=== PATIENT | female | born 1945 | race African-American/Black ===

== ENCOUNTER 2018-08-31 20:38 | Inpatient (IN) ==
[2018-08-31] MEDS ORDERED: SODIUM CHLORIDE 0.9% 1,000 ML IV STA ×2 (21:34→22:38)
[2018-08-31 22:34] LABS: Apearance,Urine Slightly Hazy (Clear); Bilirubin,Urine Negative (Negative); Blood, Urine Negative (Negative); Glucose,Urine (UA) Negative (Negative); Hyaline Casts,Urine 33 /LPF (0-3); Ketones,Urine 5 mg/dL (Negative); Mucus,Urine Occasional /LPF (Occasional); Nitrite,Urine Negative (Negative); Protein,Urine Negative; RBC,Urine 7 /HPF (0-4); Squamous Epithelial Cell,Urine Occasional /HPF (0-10); Urine Color Yellow (Yellow); WBC,Urine 1 /HPF (0-6)
[2018-08-31] MEDS ORDERED: KETOROLAC 30 MG/1 ML VIAL ONE (22:41)
[2018-08-31] MEDS ORDERED: KETOROLAC 30 MG/1 ML VIAL IV STA (22:41)
[2018-08-31 23:00] LABS: Basophils % 0.3 % (0.0-0.8); Eosinophils % 0.4 % (0.00-10.9); Hematocrit 30.7 VOL% (35.7-47.0); Hemoglobin 9.7 GM/DL (12.0-16.0); Immature Granulocytes % 0.4 %; Immature Granulocytes Absolute 0.05 #; Lymphocytes # 2.2 10*3/uL (1.4-4.0); Lymphocytes % 19.8 % (21.3-54.2); Mean Corpuscular HGB Conc 31.6 GM/DL (32-36); Mean Corpuscular Hemoglobin 28 PG (27-34); Mean Corpuscular Volume 88.7 FL (87-102); Mean Platelet Volume 9.2 FL (9.6-12.0); Monocytes # 0.8 10*3/uL (0.11-0.8); Monocytes % 7.3 % (1.7-12.7); Neutrophils # 8.1 10*3/uL (1.4-7.4); Neutrophils % 71.8 % (38.7-73.9); Platelet Count 238 T/CUMM (130-400); Red Blood Count 3.46 MC/CUMM (3.8-5.5); Red Cell Distribution Width 17.5 % (9.3-17.3); White Blood Count 11.3 T/CUMM (4-12)
[2018-08-31 23:26] LABS: Alanine Aminotransferase 12 U/L (13-56); Albumin 3.4 G/DL (3.4-5.0); Alkaline Phosphatase 50 U/L (45-117); Aspartate Amino Transferase 12 U/L (0-37); Bilirubin,Total < 0.39 MG/DL (0.2-1.0); Blood Urea Nitrogen 30 MG/DL (7-18); Calcium 9.1 MG/DL (8.5-10.1); Glucose 137 MG/DL (74-106); Osmolality,Calculated 284.5 MOS/KG (273-304); Potassium 4.4 MMOL/L (3.5-5.1); Sodium 139 MMOL/L (136-145); Total Protein 6.5 G/DL (6.4-8.3)
[2018-09-01] MEDS ORDERED: DOPamine 800 MG/250 ML PREMIX IV PRN (00:15)
[2018-09-01] MEDS ORDERED: ONDANSETRON 4 MG/2 ML VIAL IV PRN (01:31)
[2018-09-01] MEDS ORDERED: DOCUSATE SODIUM 100 MG CAPSULE PO PRN (01:31)
[2018-09-01] MEDS ORDERED: ACETAMINOPHEN 325 MG TABLET PO PRN (01:31)
[2018-09-01] MEDS ORDERED: BISACODYL 5 MG TABLET PO PRN (01:37)
[2018-09-01] MEDS ORDERED: HYDROmorphone 2 MG/1 ML VIAL IV PRN ×2 (01:49→01:59)
[2018-09-01] MEDS ORDERED: DEXTROSE 50% 25 GM/50 ML SYRINGE IV PRN (02:37)
[2018-09-01] MEDS ORDERED: GLUCAGON 1 MG VIAL IM PRN (02:37)
[2018-09-01] MEDS: SODIUM CHLORIDE 0.9% 1,000 ML IV SCH ×2 (02:50→16:30)
[2018-09-01] MEDS: INSULIN REGULAR 100 UNIT/ML SUBCUT SCH ×3 (06:38→22:21)
[2018-09-01] MEDS ORDERED: ceFAZolin 1,000 MG in SYRINGE 1 EACH IV ONE (07:13)
[2018-09-01] MEDS ORDERED: diphenhydrAMINE CAP 25 MG CAPSULE PO PRN (08:59)
[2018-09-01] MEDS ORDERED: PROMETHAZINE 25 MG/1 ML VIAL IM PRN (08:59)
[2018-09-01] MEDS ORDERED: MAGNESIUM HYDROXIDE SUSP 30 ML UDCUP PO PRN (08:59)
[2018-09-01] MEDS ORDERED: BISACODYL 10 MG SUPP RECTAL PRN (08:59)
[2018-09-01] MEDS ORDERED: LACTULOSE 20 GM/30 ML UDCUP PO PRN (08:59)
[2018-09-01] MEDS ORDERED: PROPOFOL 200 MG/20 ML VIAL IV ONE (11:16)
[2018-09-01] MEDS ORDERED: SEVOFLURANE 1 UNIT/15 MINUTE INH ONE (11:16)
[2018-09-01] MEDS ORDERED: CALCIUM CHLORIDE 1,000 MG/10 ML VIAL IV ONE (11:16)
[2018-09-01] MEDS ORDERED: ONDANSETRON 4 MG/2 ML VIAL ONE (11:17)
[2018-09-01] MEDS ORDERED: PHENYLEPHRINE 1 MG/10 ML SYRINGE IV ONE (11:17)
[2018-09-01] MEDS ORDERED: ALBUTEROL INHALER 8 GM INH ONE (11:17)
[2018-09-01] MEDS ORDERED: ACETAMINOPHEN 1,000 MG/100 ML VIAL IV ONE (11:17)
[2018-09-01] MEDS: PANTOPRAZOLE 40 MG TABLET PO SCH (12:05)
[2018-09-01] MEDS: ROSUVASTATIN 10 MG TABLET PO SCH (12:05)
[2018-09-01] MEDS: CHOLECALCIFEROL 400 UNIT TABLET PO SCH (12:05)
[2018-09-01] MEDS: ESCITALOPRAM 10 MG TABLET PO SCH (12:05)
[2018-09-01] MEDS: GABAPENTIN 600 MG TABLET PO SCH ×2 (12:05→21:18)
[2018-09-01] MEDS: ceFAZolin 1,000 MG in SYRINGE 1 EACH IV SCH (15:19)
[2018-09-01] MEDS: metFORMIN 850 MG TABLET PO SCH (17:13)
[2018-09-01] MEDS: DIPYRIDAMOLE/ASPIRIN 200-25 MG CAPSULE PO SCH (21:18)
[2018-09-02] MEDS: ceFAZolin 1,000 MG in SYRINGE 1 EACH IV SCH ×2 (00:03→13:18)
[2018-09-02] MEDS: INSULIN REGULAR 100 UNIT/ML SUBCUT SCH ×4 (00:32→18:07)
[2018-09-02 05:52] LABS: Calcium 8.7 MG/DL (8.5-10.1); Potassium 4.3 MMOL/L (3.5-5.1)
[2018-09-02 07:16] LABS: Basophils % 0.4 % (0.0-0.8); Eosinophils # 0.1 10*3/uL (0.0-0.87); Eosinophils % 1.3 % (0.00-10.9); Hematocrit 25.7 VOL% (35.7-47.0); Immature Granulocytes % 0.2 %; Immature Granulocytes Absolute 0.02 #; Lymphocytes # 3.1 10*3/uL (1.4-4.0); Lymphocytes % 36.6 % (21.3-54.2); Mean Corpuscular HGB Conc 31.1 GM/DL (32-36); Mean Corpuscular Hemoglobin 28 PG (27-34); Mean Corpuscular Volume 90.2 FL (87-102); Mean Platelet Volume 10.1 FL (9.6-12.0); Monocytes # 0.6 10*3/uL (0.11-0.8); Monocytes % 7.2 % (1.7-12.7); Neutrophils # 4.5 10*3/uL (1.4-7.4); Neutrophils % 54.3 % (38.7-73.9); Platelet Count 197 T/CUMM (130-400); Red Blood Count 2.85 MC/CUMM (3.8-5.5); Red Cell Distribution Width 17.7 % (9.3-17.3); White Blood Count 8.4 T/CUMM (4-12)
[2018-09-02] MEDS: ESCITALOPRAM 10 MG TABLET PO SCH (10:19)
[2018-09-02] MEDS: metFORMIN 850 MG TABLET PO SCH ×2 (10:19→16:47)
[2018-09-02] MEDS: GABAPENTIN 600 MG TABLET PO SCH ×2 (10:19→20:50)
[2018-09-02] MEDS: DIPYRIDAMOLE/ASPIRIN 200-25 MG CAPSULE PO SCH ×2 (10:19→20:50)
[2018-09-02] MEDS: hydroCHLOROthiazide 25 MG TABLET PO SCH (10:19)
[2018-09-02] MEDS: LISINOPRIL 20 MG TABLET PO SCH (10:19)
[2018-09-02] MEDS: ROSUVASTATIN 10 MG TABLET PO SCH (10:21)
[2018-09-02] MEDS: PANTOPRAZOLE 40 MG TABLET PO SCH (10:21)
[2018-09-02] MEDS: CHOLECALCIFEROL 400 UNIT TABLET PO SCH (10:21)
[2018-09-02] MEDS ORDERED: ceFAZolin 1,000 MG in SYRINGE 1 EACH IV SCH (10:30)
[2018-09-02] MEDS: SODIUM CHLORIDE 0.9% 1,000 ML IV SCH (13:17)
[2018-09-03] MEDS: INSULIN REGULAR 100 UNIT/ML SUBCUT SCH ×4 (00:54→20:02)
[2018-09-03 05:24] LABS: Basophils % 0.2 % (0.0-0.8); Eosinophils # 0.1 10*3/uL (0.0-0.87); Eosinophils % 1.2 % (0.00-10.9); Hematocrit 25.6 VOL% (35.7-47.0); Hemoglobin 8.1 GM/DL (12.0-16.0); Immature Granulocytes % 0.8 %; Immature Granulocytes Absolute 0.07 #; Lymphocytes # 2.7 10*3/uL (1.4-4.0); Lymphocytes % 31.5 % (21.3-54.2); Mean Corpuscular HGB Conc 31.6 GM/DL (32-36); Mean Corpuscular Hemoglobin 28 PG (27-34); Mean Corpuscular Volume 88.6 FL (87-102); Mean Platelet Volume 9.4 FL (9.6-12.0); Monocytes # 0.7 10*3/uL (0.11-0.8); Monocytes % 7.9 % (1.7-12.7); Neutrophils % 58.4 % (38.7-73.9); Platelet Count 185 T/CUMM (130-400); Red Blood Count 2.89 MC/CUMM (3.8-5.5); Red Cell Distribution Width 17.5 % (9.3-17.3); White Blood Count 8.5 T/CUMM (4-12)
[2018-09-03 05:46] LABS: Calcium 8.6 MG/DL (8.5-10.1); Osmolality,Calculated 279.4 MOS/KG (273-304)
[2018-09-03] MEDS: ROSUVASTATIN 10 MG TABLET PO SCH (09:38)
[2018-09-03] MEDS: LISINOPRIL 20 MG TABLET PO SCH (09:38)
[2018-09-03] MEDS: ESCITALOPRAM 10 MG TABLET PO SCH (09:38)
[2018-09-03] MEDS: PANTOPRAZOLE 40 MG TABLET PO SCH (09:38)
[2018-09-03] MEDS: DIPYRIDAMOLE/ASPIRIN 200-25 MG CAPSULE PO SCH ×2 (09:38→21:47)
[2018-09-03] MEDS: GABAPENTIN 600 MG TABLET PO SCH ×2 (09:38→21:47)
[2018-09-03] MEDS: CHOLECALCIFEROL 400 UNIT TABLET PO SCH (09:38)
[2018-09-03] MEDS: metFORMIN 850 MG TABLET PO SCH ×2 (09:39→18:36)
[2018-09-03] MEDS: hydroCHLOROthiazide 25 MG TABLET PO SCH (12:54)
[2018-09-04] MEDS: INSULIN REGULAR 100 UNIT/ML SUBCUT SCH ×3 (00:48→12:43)
[2018-09-04] MEDS: DIPYRIDAMOLE/ASPIRIN 200-25 MG CAPSULE PO SCH (11:22)
[2018-09-04] MEDS: metFORMIN 850 MG TABLET PO SCH (11:22)
[2018-09-04] MEDS: CHOLECALCIFEROL 400 UNIT TABLET PO SCH (11:23)
[2018-09-04] MEDS: ROSUVASTATIN 10 MG TABLET PO SCH (11:24)
[2018-09-04] MEDS: GABAPENTIN 600 MG TABLET PO SCH (11:24)
[2018-09-04] MEDS: ESCITALOPRAM 10 MG TABLET PO SCH (11:24)
[2018-09-04] MEDS: hydroCHLOROthiazide 25 MG TABLET PO SCH (11:24)
[2018-09-04] MEDS: LISINOPRIL 20 MG TABLET PO SCH (11:25)
[2018-09-04] MEDS: PANTOPRAZOLE 40 MG TABLET PO SCH (11:25)
[2018-09-04 11:53] VITALS: BP 121/67
== END 2018-09-04 14:40 | disposition swing bed (61) | DRG 493 ==
LOC: EDUNIT# → EDBD → N.ED 20:38 → N.EDINP 09-01 01:31 → SUATTDRO 09-01 01:31 → N.3E 09-01 02:02
PROVIDERS: ADMIT Internal Medicine; ATTEND Internal Medicine